=== PATIENT | female | born 1960 | race Caucasian/White ===

== ENCOUNTER 2017-08-02 01:50 | Emergency (ER) | payer BC ==
[~2017-08-02] VITALS: Ht 165.1 cm; Wt 56.7 kg
--- NOTE | 2017-08-02 02:12 | NUR ---
DR KISHOR SWIFT MD AT BEDSIDE FOR MSE.
[2017-08-02] MEDS ORDERED: IV NORMAL SALINE 1000 ML BAG IV ONE ×2 (02:30)
--- NOTE | 2017-08-02 02:35 | NUR ---
RADIOLOGY AT BEDSIDE FOR XRAY.
--- NOTE | 2017-08-02 02:39 | NUR ---
PT TAKEN TO RADIOLOGY VIA GURNEY. NO DISTRESS NOTED.
[2017-08-02 02:46] LABS: BASOPHILS % (AUTO) 0.6 % (0.0-2.0); EOSINOPHILS # (AUTO) 0.1 K/uL (0.0-0.7); EOSINOPHILS % (AUTO) 2.2 % (0.0-7.0); HEMATOCRIT 37.2 % (31.2-41.9); HEMOGLOBIN 12.8 g/dL (10.9-14.3); LYMPHOCYTES # (AUTO) 1.3 K/uL (20.0-40.0); LYMPHOCYTES % (AUTO) 23.6 % (20.5-51.5); MEAN CORPUSCULAR HGB CONC 34 g/dL (32.3-35.6); MEAN CORPUSCULAR VOLUME 93.1 fL (75.5-95.3); MONOCYTES # (AUTO) 0.3 K/uL (2.0-10.0); MONOCYTES % (AUTO) 5.8 % (0.0-11.0); NEUTROPHILS # (AUTO) 3.6 K/uL (1.8-8.9); NEUTROPHILS % (AUTO) 67.8 % (38.5-71.5); PLATELET COUNT (AUTO) 168 K/uL (179-408); WHITE BLOOD COUNT (AUTO) 5.3 K/uL (3.8-11.8)
[2017-08-02 02:51] LABS: CREATININE 0.9 mg/dL (0.6-1.3); POTASSIUM 3.9 mmol/L (3.5-5.1)
[2017-08-02 02:56] LABS: BILIRUBIN,DIRECT 0.1 mg/dL (0.0-0.2); BILIRUBIN,TOTAL 0.3 mg/dL (0.2-1.0); TOTAL PROTEIN, SERUM 6.8 g/dL (6.4-8.2)
--- NOTE | 2017-08-02 03:31 | NUR ---
PT RESTING IN BED W/ EYES CLOSED. NO ACUTE DISTRESS NOTED. AT BEDSIDE.
--- NOTE | 2017-08-02 03:50 | NUR ---
Patient discharged to home in stable conditon. Written and verbal after care instructions given. Patient verbalizes understanding of instructions. IV removed w/ catheter intact. Pressure applied to site. No bleeding noted. Pt ambulated from ER w/ steady gait. Denies dizziness or SOB. Pt states she "feels much better". No distress noted. Accompanied by .
[2017-08-02 03:52] VITALS: BP 99/64
== END 2017-08-02 03:53 | disposition home or self-care (01) ==
LOC: ER 01:58
DX: R42 Dizziness and giddiness (principal); F12.10 Cannabis abuse, uncomplicated; F10.10 Alcohol abuse, uncomplicated; Z88.0 Allergy status to penicillin
CPT/HCPCS: 36415; 70450; 71045; 80048; 80076; 84484; 85025; 85730; 93005; 96360; 99285; A4663; J7030; 70030-TC